=== PATIENT | female | born 1995 | race African-American/Black ===

== ENCOUNTER 2018-03-17 16:10 | Day surgery (SDC) | payer MEDICAID, OTHER ==
[~2018-03-17] VITALS: Ht 165.1 cm; Wt 59.9 kg
[2018-03-17 18:22] LABS: Basophils # (auto) 0 uL; Basophils % (auto) 0.4 % (0.0-2.0); Eosinophils # (auto) 0.1 uL; Eosinophils % (auto) 0.7 % (0.0-7.0); Hematocrit 31.8 % (36.0-46.0); Hemoglobin 10.5 g/dL (12.2-16.2); Lymphocytes # (auto) 2.2 uL; Lymphocytes % (auto) 20.2 % (10.0-50.0); Mean Corpuscular Hgb Conc. 32.9 g/dL (32.0-36.0); Mean Corpuscular Volume 91.4 fL (80.0-100.0); Monocytes # (auto) 0.7 uL; Monocytes % (auto) 6.2 % (0.0-12.0); Neutrophils # (auto) 7.8 uL; Neutrophils % (auto) 72.5 % (37.0-80.0); Nucleated Red Blood Cells % 0.1 %; Platelet Count (auto) 446 10^3/uL (140-450); Red Blood Cells 3.48 10^6/uL (4.0-5.20); Red Cell Distribution Width 15.2 % (11.8-14.3); White Blood Cell 10.8 10^3/uL (4.4-10.8)
[2018-03-17 18:37] LABS: BUN/Creatinine Ratio 6.1; Potassium 4.1 mmol/L (3.5-5.1)
[2018-03-17] MEDS ORDERED: MORPHINE SULFATE 4 MG/ML SYR/VIAL IV PRN (21:00)
[2018-03-17] MEDS ORDERED: OXYTOCIN 20 UNT in LACTATED RINGER'S 1,000 ML IV ONE (21:00)
[2018-03-17] MEDS ORDERED: ONDANSETRON HCL 4 MG/2 ML VIAL IV PRN (21:00)
[2018-03-17 22:36] LABS: INR 1.07 (0.9-1.15); Partial Thromboplastin Time 29.6 sec (23.78-33.04); Prothrombin Time 11.4 sec (9.27-12.13)
[2018-03-18] MEDS ORDERED: MIDAZOLAM HCL 1MG/1ML-2 ML VIAL ONE (07:47)
[2018-03-18] MEDS ORDERED: fentaNYL CITRATE 100 MCG/2 ML VL ONE (07:47)
[2018-03-18] MEDS ORDERED: PROPOFOL 10 MG/ML 20 ML IV ONE (07:47)
[2018-03-18] MEDS ORDERED: DEXAMETHASONE SOD PHOS 10MG/1ML VIAL INJ ONE (07:47)
[2018-03-18 08:08] LABS: Basophils # (auto) 0.1 uL; Basophils % (auto) 0.6 % (0.0-2.0); Eosinophils # (auto) 0.1 uL; Eosinophils % (auto) 1.4 % (0.0-7.0); Hematocrit 29.1 % (36.0-46.0); Hemoglobin 9.9 g/dL (12.2-16.2); Lymphocytes # (auto) 2.9 uL; Lymphocytes % (auto) 32.7 % (10.0-50.0); Mean Corpuscular Hemoglobin 30.9 pg (28.0-32.0); Mean Corpuscular Hgb Conc. 33.9 g/dL (32.0-36.0); Monocytes # (auto) 0.6 uL; Monocytes % (auto) 7.2 % (0.0-12.0); Neutrophils # (auto) 5.2 uL; Neutrophils % (auto) 58.1 % (37.0-80.0); Nucleated Red Blood Cells % 0.1 %; Platelet Count (auto) 371 10^3/uL (140-450); Red Blood Cells 3.19 10^6/uL (4.0-5.20); Red Cell Distribution Width 15.1 % (11.8-14.3); White Blood Cell 8.9 10^3/uL (4.4-10.8)
[2018-03-18] MEDS ORDERED: KETOROLAC TROMETH 30 MG/ML 1ML VIAL ONE (08:15)
[2018-03-18 08:22] LABS: INR 1.08 (0.9-1.15); Prothrombin Time 11.5 sec (9.27-12.13)
[2018-03-18] MEDS ORDERED: OXYTOCIN 10UNIT/ML 1ML VIAL ONE (08:22)
[2018-03-18] MEDS ORDERED: RHO (D) IMMUNE GLOBULIN 300 MCG INJ IM PRN (08:30)
[2018-03-18] MEDS ORDERED: ONDANSETRON HCL 4 MG/2 ML VIAL IV PRN (08:30)
[2018-03-18 09:47] VITALS: BP 92/61
== END 2018-03-18 09:52 | disposition home or self-care (01) ==
LOC: ER 16:13 → SUR 16:14 → ER 03-18 10:34
PROVIDERS: ATTEND Obstetrics & Gynecology
DX: O03.4 Incomplete spontaneous abortion without complication (principal); J45.909 Unspecified asthma, uncomplicated; F10.99 Alcohol use, unspecified with unspecified alcohol-induced disorder; Z3A.09 9 weeks gestation of pregnancy
CPT/HCPCS: 59812; J2590; J3010; 36415; 76830; 76856; 80048; 84702; 85025; 85610; 85730; 86850; 86900; 86901; J1100; J1885; J2250; J2704

== ENCOUNTER → 2018-03-26 | Outpatient (CLI) | payer MEDICAID | END | disposition home or self-care (01) | LOC: LAB 13:06 | PROVIDERS: ATTEND Obstetrics & Gynecology | DX: N91.2 Amenorrhea, unspecified (principal) | CPT/HCPCS: 36415; 84702 ==

== ENCOUNTER 2018-12-26 21:02 | Emergency (ER) | payer MEDICAID ==
[~2018-12-26] VITALS: Ht 154.9 cm; Wt 63.5 kg
[2018-12-26 22:29] LABS: INR 1.03 (0.9-1.15); Partial Thromboplastin Time 28.5 sec (23.64-32.05)
[2018-12-26 22:30] LABS: Albumin 3.8 g/dL (3.4-5.0); Calcium 8.8 mg/dL (8.5-10.1); Potassium 3.9 mmol/L (3.5-5.1)
[2018-12-26 22:33] LABS: Total Protein 7.4 g/dL (6.4-8.2)
[2018-12-26 22:57] LABS: Basophils # (auto) 0 uL; Basophils % (auto) 0.4 % (0.0-2.0); Eosinophils # (auto) 0.2 uL; Eosinophils % (auto) 3.2 % (0.0-7.0); Hematocrit 43.1 % (36.0-46.0); Hemoglobin 14.3 g/dL (12.2-16.2); Lymphocytes # (auto) 2.3 uL; Lymphocytes % (auto) 34.4 % (10.0-50.0); Mean Corpuscular Hemoglobin 29.3 pg (28.0-32.0); Mean Corpuscular Hgb Conc. 33.1 g/dL (32.0-36.0); Mean Corpuscular Volume 88.5 fL (80.0-100.0); Monocytes # (auto) 0.5 uL; Monocytes % (auto) 8.2 % (0.0-12.0); Neutrophils # (auto) 3.6 uL; Neutrophils % (auto) 53.8 % (37.0-80.0); Platelet Count (auto) 248 10^3/uL (140-450); Red Blood Cells 4.87 10^6/uL (4.0-5.20); Red Cell Distribution Width 14.6 % (11.8-14.3); White Blood Cell 6.6 10^3/uL (4.4-10.8)
[2018-12-27 00:15] LABS: Urine Bacteria NONE SEEN /hpf (None Seen); Urine Blood 2+ /uL (Negative); Urine Specific Gravity 1.017 (1.001-1.035); Urine WBC 336 /hpf (0 - 5)
[2018-12-27 02:14] VITALS: BP 107/60
[2018-12-27] MEDS ORDERED: medroxyPROGESTERone ACETATE 5 MG TAB PO ONE (02:30)
== END 2018-12-27 03:52 | disposition home or self-care (01) ==
LOC: ER 21:04
DX: N93.8 Other specified abnormal uterine and vaginal bleeding (principal); J45.909 Unspecified asthma, uncomplicated
CPT/HCPCS: 36415; 76856; 80053; 81001; 81025; 85025; 85610; 85730; 86850; 86900; 86901

== ENCOUNTER 2019-05-12 17:35 | Emergency (ER) | payer MEDICAID ==
[~2019-05-12] VITALS: Ht 165.1 cm; Wt 61.7 kg
[2019-05-12 20:27] VITALS: BP 107/65
== END 2019-05-12 21:00 | disposition home or self-care (01) ==
LOC: ER 17:35
DX: O20.0 Threatened abortion (principal); Z3A.01 Less than 8 weeks gestation of pregnancy
CPT/HCPCS: 36415; 84702

== ENCOUNTER 2019-07-27 19:04 | Emergency (ER) | payer MEDICAID ==
[~2019-07-27] VITALS: Ht 165.1 cm; Wt 61.2 kg
[2019-07-27 20:49] LABS: Urine Bacteria NONE SEEN /hpf (None Seen); Urine Blood 2+ /uL (Negative); Urine Hyaline Cast FEW /lpf (0 - 2); Urine Mucus FEW (None Seen); Urine Specific Gravity 1.025 (1.001-1.035); Urine WBC 2 /hpf (0 - 5)
[2019-07-27 21:42] LABS: Albumin 3.6 g/dL (3.4-5.0); Calcium 9.2 mg/dL (8.5-10.1); Potassium 3.4 mmol/L (3.5-5.1)
[2019-07-27 21:45] LABS: Basophils # (auto) 0 uL; Basophils % (auto) 0.4 % (0.0-2.0); Eosinophils # (auto) 0.2 uL; Hematocrit 39.7 % (36.0-46.0); Hemoglobin 13.4 g/dL (12.2-16.2); Lymphocytes # (auto) 2.4 uL; Lymphocytes % (auto) 30.1 % (10.0-50.0); Mean Corpuscular Hemoglobin 30.4 pg (28.0-32.0); Mean Corpuscular Hgb Conc. 33.8 g/dL (32.0-36.0); Mean Corpuscular Volume 90.2 fL (80.0-100.0); Monocytes # (auto) 0.5 uL; Monocytes % (auto) 6.7 % (0.0-12.0); Neutrophils # (auto) 4.9 uL; Neutrophils % (auto) 59.8 % (37.0-80.0); Nucleated Red Blood Cells % 0.1 %; Platelet Count (auto) 216 10^3/uL (140-450); Red Cell Distribution Width 14.3 % (11.8-14.3); White Blood Cell 8.1 10^3/uL (4.4-10.8)
[2019-07-27 21:52] LABS: Bilirubin, Total 0.3 mg/dL (0.2-1.0); Total Protein 7.4 g/dL (6.4-8.2)
[2019-07-27 22:12] LABS: INR 0.98 (0.9-1.15); Partial Thromboplastin Time 28.2 sec (23.64-32.05)
[2019-07-28 01:11] VITALS: BP 107/58
== END 2019-07-28 01:00 | disposition home or self-care (01) ==
LOC: ER 19:04
DX: O20.8 Other hemorrhage in early pregnancy (principal); O99.511 Diseases of the respiratory system complicating pregnancy, first trimester; J45.909 Unspecified asthma, uncomplicated; Z3A.10 10 weeks gestation of pregnancy
CPT/HCPCS: 36415; 76801; 80053; 81001; 84702; 85025; 85610; 85730; 86850; 86900; 86901

== ENCOUNTER 2021-03-28 20:03 | Emergency (ER) | payer MEDICAID ==
[~2021-03-28] VITALS: Ht 165.1 cm; Wt 62.1 kg
[2021-03-28 21:54] LABS: Basophils # (auto) 0.1 10 ^3/uL (0-0.2); Basophils % (auto) 0.7 % (0.0-2.0); Eosinophils # (auto) 0.7 10 ^3/uL (0-0.8); Eosinophils % (auto) 8.6 % (0.0-7.0); Hematocrit 41.5 % (36.0-46.0); Hemoglobin 14.4 g/dL (12.2-16.2); Lymphocytes # (auto) 3.6 10 ^3/uL (0.4-5.4); Lymphocytes % (auto) 43.9 % (10.0-50.0); Mean Corpuscular Hemoglobin 30.5 pg (28.0-32.0); Mean Corpuscular Hgb Conc. 34.8 g/dL (32.0-36.0); Mean Corpuscular Volume 87.6 fL (80.0-100.0); Monocytes # (auto) 0.4 10 ^3/uL (0-1.3); Monocytes % (auto) 5.4 % (0.0-12.0); Neutrophils # (auto) 3.3 10 ^3/uL (1.6-8.6); Neutrophils % (auto) 41.4 % (37.0-80.0); Nucleated Red Blood Cells % 0.2 %; Red Blood Cells 4.74 10^6/uL (4.0-5.20); Red Cell Distribution Width 13.6 % (11.8-14.3); White Blood Cell 8.1 10^3/uL (4.4-10.8)
[2021-03-28 22:07] LABS: Calcium 9.3 mg/dL (8.5-10.1)
[2021-03-28 22:21] LABS: Bilirubin, Total 0.5 mg/dL (0.2-1.0); Total Protein 7.6 g/dL (6.4-8.2)
[2021-03-28 22:38] LABS: Urine Bacteria FEW /hpf (None Seen); Urine Blood 2+ /uL (Negative); Urine Mucus FEW (None Seen); Urine Specific Gravity 1.029 (1.001-1.035); Urine WBC 1 /hpf (0 - 5)
[2021-03-28 23:01] LABS: Amylase 70 U/L (25-115); Lipase 147 U/L (73-393)
[2021-03-29 01:00] VITALS: BP 102/65
== END 2021-03-29 01:32 | disposition home or self-care (01) ==
LOC: ER 20:10
DX: N92.1 Excessive and frequent menstruation with irregular cycle (principal); N83.202 Unspecified ovarian cyst, left side; J45.909 Unspecified asthma, uncomplicated
CPT/HCPCS: 36415; 76830; 76856; 80053; 81001; 82150; 83690; 84702; 85025

== ENCOUNTER 2021-04-16 00:06 | Emergency (ER) | payer MEDICAID ==
[~2021-04-16] VITALS: Ht 165.1 cm; Wt 63.0 kg
[2021-04-16 02:39] LABS: Basophils # (auto) 0.1 10 ^3/uL (0-0.2); Basophils % (auto) 0.7 % (0.0-2.0); Eosinophils # (auto) 0.7 10 ^3/uL (0-0.8); Eosinophils % (auto) 8.7 % (0.0-7.0); Hematocrit 39.7 % (36.0-46.0); Hemoglobin 13.2 g/dL (12.2-16.2); Lymphocytes % (auto) 40.6 % (10.0-50.0); Mean Corpuscular Hemoglobin 29.1 pg (28.0-32.0); Mean Corpuscular Hgb Conc. 33.3 g/dL (32.0-36.0); Mean Corpuscular Volume 87.5 fL (80.0-100.0); Monocytes # (auto) 0.5 10 ^3/uL (0-1.3); Monocytes % (auto) 7.1 % (0.0-12.0); Neutrophils # (auto) 3.2 10 ^3/uL (1.6-8.6); Neutrophils % (auto) 42.9 % (37.0-80.0); Nucleated Red Blood Cells % 0.1 %; Red Blood Cells 4.53 10^6/uL (4.0-5.20); Red Cell Distribution Width 14.2 % (11.8-14.3); White Blood Cell 7.5 10^3/uL (4.4-10.8)
[2021-04-16 03:00] LABS: Albumin 3.5 g/dL (3.4-5.0); BUN/Creatinine Ratio 11.6; Calcium 8.9 mg/dL (8.5-10.1)
[2021-04-16 03:03] LABS: Bilirubin, Total 0.4 mg/dL (0.2-1.0)
[2021-04-16 07:26] VITALS: BP 104/67
[2021-04-16 08:40] LABS: Urine Bacteria FEW /hpf (None Seen); Urine Blood 3+ /uL (Negative); Urine Specific Gravity 1.008 (1.001-1.035); Urine WBC 15 /hpf (0 - 5); Urine WBC Clumps PRESENT /hpf (None Seen)
== END 2021-04-16 10:54 | disposition home or self-care (01) ==
LOC: ER 00:06
DX: N93.8 Other specified abnormal uterine and vaginal bleeding (principal); N39.0 Urinary tract infection, site not specified; J45.909 Unspecified asthma, uncomplicated
CPT/HCPCS: 36415; 76830; 76856; 80053; 81001; 84702; 85025

== ENCOUNTER 2025-01-18 13:53 | Observation (INO) | payer MEDICAID ==
--- NOTE | 2025-01-18 16:25 | DVHDS2 ---
Physician Discharge Progress N Final Diagnosis: False labor Operations or Procedures: Operations or Procedures NST Commentary: Commentary NOT in labor Condition on Discharge: Stable Disposition: Home Discharge Instructions: Diet: Regular Activity: No Restrictions, As Tolerated Follow Up/Referral: PRN Medications: NA Follow Up Care: Discharge Statement: "Patient was advised to return to the ER or call 911 if any headaches, dizziness, shortness of breath, chest pain, abdominal pain, bleeding, fevers, or worsening of medical condition. Patient was counseled about treatment plan, medications, possible side effects, patientverbalized understanding. All questions were answered to the best of my ability. This discharge took greater then 30 minutes in planning, reviewing documentation, counseling the patient, and discussing with other team members." Visit Coding OBGYN Date of Service: Jan 18, 2025 Billing Provider: RAYMON NGUYEN DO ASSISTANT TO THE PRESIDENT Common Visit Codes: 70125-LBW/OBS SAME DATE (MOD) ASSISTANT TO THE PRESIDENT Procedure Codes: 38354-11- NON-STRESS TEST RAYMON NGUYEN DO Jan 18, 2025 16:24
== END 2025-01-18 14:57 | disposition home or self-care (01) ==
LOC: UNDOADMOB 13:53 → LDRP 13:53 → UNDODISOB 14:57
PROVIDERS: ADMIT Obstetrics & Gynecology; ATTEND Obstetrics & Gynecology
DX: O47.9 False labor, unspecified (principal); Z3A.23 23 weeks gestation of pregnancy; Z98.890 Other specified postprocedural states; Z79.899 Other long term (current) drug therapy
CPT/HCPCS: 81002; G0378; 59025

== ENCOUNTER 2025-03-10 22:38 | Observation (INO) | payer MEDICAID ==
[~2025-03-10] VITALS: Ht 165.1 cm; Wt 63.5 kg
[2025-03-10] MEDS: ACETAMINOPHEN IV 1000 MG/100ML (10MG/ML) IV ONE (23:40)
--- NOTE | 2025-03-11 00:15 | DVHDS2 ---
Physician Discharge Progress N Final Diagnosis: IUP at 30w 2d Lower Back pain Operations or Procedures: Operations or Procedures S: Ms Garcia, wesly 29yo G7, 2041 with EDC of 05/17/25, EGA 30w 2dayswas brought in by Paramedics. She reports loer back pain that started at 21:40. She reports no SROM, VB, WATTS, vision changes or epigastric pain. Has had a busy day cleaning the house and walking to and fro for grocery shopping, denies carrying any heavy load, accidental fall or bumping into any item.No cramping, movement as normal Pain occurs mainly with movement; feels fine w/o movement O: A&O x3 Appears uncomfortable with movement. No CVA tenderness Abdomen palpate soft EFM FHR baseline 145 bpm mod variability Accelerations present, no deceleration Tocometer: No UCs A: <> IUP at 30w 2d <> Low back Pain P: Abd US r/o Renal calculi, r/o Cholelithiasis Ob US , check cervical length r/o PTL UA r/o UTI Acetaminophen 1G IV Apply heat to lower back with Heating pad Re-assessment @ 0100 Pt reports pain is much less than previous FHR baseline 140bpm, mod variability Accelerations present, no deceleration Tocometer: No UCs, none palpated US report Unremarkable renal US Abd w/o evidence of cholelithiasis OB US normal: cervical length 5.3cm and appears close UA: neg THELMA 12.4cm A: IUP at 30w 2days Low Back Pain -relieved P Discharge patient to home Follow up with your OB Provider within 24 hours Pt advised to go to ER if pain persists or increases in intensity 3rd trimester emergency S&S FMC, PTL & pre-eclampsia precautions reviewed with pt; advised to seek health care if any symptom including but not limited to any of the above. Condition on Discharge: Stable Disposition: Home Discharge Instructions: Diet: Regular Activity: No Restrictions, As Tolerated Activity comment: Balance activityies with rest periods Practice good ergonomis Follow Up/Referral: Follow up with your OB provider within 24hours Medications: None Follow Up Care: Discharge Statement: Follow up with your OB Provider w/in 24hrs 3rd trimester emergency S&S FMC, PTL & pre-eclampsia precautions reviewed with pt; advised to seek health care if any symptom including but not limited to any of the above. Go to ER if pain persists or increase in intensity. "Patient was advised to return to the ER or call 911 if any headaches, dizziness, shortness of breath, chest pain, abdominal pain, bleeding, fevers, or worsening of medical condition. Patient was counseled about treatment plan, medications, possible side effects, patientverbalized understanding. All questions were answered to the best of my ability. This discharge took greater then 30 minutes in planning, reviewing documentation, counseling the patient, and discussing with other team members." Visit Coding OBGYN Date of Service: Mar 11, 2025 Billing Provider: TIGRE PARKINSON CNM STRIPPING AND BOOKING MACHINE OPERATOR Common Visit Codes: 18480-ISG/OBS SAME DATE (HIGH) STRIPPING AND BOOKING MACHINE OPERATOR Procedure Codes: 64656-72- NON-STRESS TEST TIGRE PARKINSON CNM Mar 11, 2025 00:15
--- NOTE | 2025-03-11 00:31 | DVH ---
LIMITED OB ULTRASOUND > 14 WKS: HISTORY: CAT 1 TECHNIQUE: Multiple real-time grayscale images of the gravid uterus with duplex Doppler color flow an d M-mode spectral analysis. COMPARISON: None FINDINGS: Single intrauterine gestation with cardiac activity. heart rate: 147 beats per minute THELMA: 12.4 cm Cervix: 5.3 cm, appears closed Visualized anatomy is unremarkable. Posterior placenta. No evidence of previa or abruption. IMPRESSION: 1. Intrauterine gestation with cardiac activity. biometry not performed. No evidence of gestat ional complication.
--- NOTE | 2025-03-11 00:32 | DVH ---
INDICATION: r/o Kidney stones TECHNIQUE: Multiple real-time sonographic images of the kidneys and bladder were obtained. COMPARISON: None FINDINGS: The right kidney measures 11.8 cm in the left kidney measures 12.7 cm. No hydronephrosis or visualiz ed stone. Urinary bladder is well distended without evidence of wall thickening or filling defect. IMPRESSION: 1. Unremarkable renal and bladder ultrasound.
[2025-03-11 00:50] LABS: Urine Protein, UAD Negative (Negative)
--- NOTE | 2025-03-11 00:50 | DVH ---
INDICATION: R/O gallstones TECHNIQUE: Multiple real-time sonographic images were obtained of the right upper quadrant. COMPARISON: None FINDINGS: The liver demonstrates normal homogeneous echotexture without focal mass lesions. The liver measures 14.5 cm. Normal hepatopetal portal venous flow appreciated. No evidence of pleural effusion or abdominal ascites. There is no intrahepatic or extrahepatic ductal dilatation. The common duct measures 0.3 cm. The gallbladder is without evidence of stone or sludge. The gallbladder wall measures 0.2 cm and is w ithin normal limits. Negative sonographic Means's sign. The right kidney measures 11.1 cm. The right kidney is normal in contour, size, and shape. The echoge nicity is normal. There is no hydronephrosis. The pancreas is not well visualized due to overlying bowel gas. IMPRESSION: 1. No sonographic evidence of cholelithiasis or acute cholecystitis.
[2025-03-11] MEDS: LACTATED RINGER'S 1,000 ML IV SCH (02:14)
== END 2025-03-11 01:58 | disposition home or self-care (01) ==
LOC: LDRP 22:38
PROVIDERS: ADMIT Obstetrics & Gynecology; ATTEND Obstetrics & Gynecology
DX: O99.891 Other specified diseases and conditions complicating pregnancy (principal); M54.59 Other low back pain; Z3A.30 30 weeks gestation of pregnancy; Z98.890 Other specified postprocedural states
CPT/HCPCS: 59025; 76705; 76775; 76815; 81001; 81002; 94760; 96361; 96374; G0378; 96360; J0131